=== PATIENT | male | born 1990 | race Caucasian/White ===

== ENCOUNTER 2023-03-02 04:59 | Emergency (ER) | payer OTHER ==
[~2023-03-02] VITALS: Ht 180.3 cm; Wt 74.8 kg
--- NOTE | 2023-03-02 05:29 | NUR ---
EMT AT BEDSIDE FOR EKG
--- NOTE | 2023-03-02 05:36 | NUR ---
RAC 20G ESTABLISHED. CONVERTED TO SALINE LOCK
--- NOTE | 2023-03-02 05:37 | NUR ---
RAD AT BED SIDE
[2023-03-02 05:48] LABS: HEMATOCRIT 44 % (39-51); HEMOGLOBIN 14.9 g/dL (13.5-17.5); MEAN CORPUSCULAR VOLUME 90 fL (80-96); RED BLOOD CELL COUNT(AUTO) 4.88 MIL/uL (4.5-6.0)
[2023-03-02 05:49] LABS: BASOPHILS % (AUTO) 0.6 % (0.0-2.0); EOSINOPHILS % (AUTO) 3.5 % (0.0-6.0); LYMPHOCYTES # (AUTO) 2.6 K/uL (0.8-4.8); LYMPHOCYTES % (AUTO) 36.7 % (20.0-44.0); MEAN CORPUSCULAR HGB CONC 34 g/dl (31.0-36.0); MONOCYTES # (AUTO) 0.6 K/uL (0.1-1.30); MONOCYTES % (AUTO) 7.8 % (2.0-12.0); NEUTROPHILS # (AUTO) 3.6 K/uL (1.8-8.9); NEUTROPHILS % (AUTO) 51.4 % (43.0-81.0); PLATELET COUNT (AUTO) 174 K/uL (150-450)
[2023-03-02 06:12] LABS: CALCIUM, SERUM 8.9 mg/dL (8.5-10.1); CARBON DIOXIDE 27 mmol/L (21-32); CHLORIDE 105 mmol/L (98-107); CREATININE 1.1 mg/dL (0.6-1.3); GLUCOSE 95 mg/dL (74-106); POTASSIUM 3.3 mmol/L (3.5-5.1); SODIUM SERUM 142 mmol/L (136-145); UREA NITROGEN, BLOOD 19 mg/dL (7-18)
--- NOTE | 2023-03-02 06:18 | NUR ---
DR HANCOCK AT BEDSIDE
--- NOTE | 2023-03-02 06:53 | NUR ---
Patient discharged to home in stable condition. Written and verbal after care instructions given. Patient verbalizes understanding of instruction.
--- NOTE | 2023-03-02 06:53 | NUR ---
IV removed. Catheter intact and site benign. Pressure and 4x4 applied to site. No bleeding noted.
[2023-03-02 06:55] VITALS: BP 112/65; TEMP 98.5; O2SAT 98
== END 2023-03-02 06:55 | disposition home or self-care (01) ==
LOC: ER 05:03
DX: R07.89 Other chest pain (principal)
CPT/HCPCS: 36415; 71045-TC; 80048-TC; 84484-TC; 85025-TC

== ENCOUNTER 2024-09-23 02:12 | Emergency (ER) | payer OTHER ==
[~2024-09-23] VITALS: Ht 180.3 cm; Wt 74.8 kg
[2024-09-23] MEDS: DICYCLOMINE HCL INJ 20 MG/2 ML AMPUL IM ONE (03:00)
[2024-09-23] MEDS: LIDOCAINE VISCOUS 2% UD 15 ML UDC MM ONE (03:00)
[2024-09-23] MEDS ORDERED: MAG HYDROX/AL HYDROX/SIMETH 30 ML UDC ONE (03:10)
[2024-09-23] MEDS ORDERED: DICYCLOMINE HCL INJ 20 MG/2 ML AMPUL IM ONE (03:10)
[2024-09-23] MEDS ORDERED: LIDOCAINE VISCOUS 2% UD 15 ML UDC ONE (03:10)
[2024-09-23] MEDS: MAG HYDROX/AL HYDROX/SIMETH 30 ML UDC PO ONE (03:17)
[2024-09-23] MEDS: SIMETHICONE 80 MG TAB.CHEW ONE (03:20)
[2024-09-23] MEDS: SIMETHICONE 80 MG TAB.CHEW PO ONE (03:20)
[2024-09-23 03:22] LABS: BASOPHILS % (AUTO) 0.3 % (0.0-2.0); EOSINOPHILS # (AUTO) 0.1 K/uL (0.0-0.7); EOSINOPHILS % (AUTO) 0.9 % (0.0-6.0); HEMATOCRIT 44 % (39-51); LYMPHOCYTES % (AUTO) 10.3 % (20.0-44.0); MEAN CORPUSCULAR HEMOGLOBIN 31 PG (26.0-33.0); MEAN CORPUSCULAR HGB CONC 34 g/dl (31.0-36.0); MEAN CORPUSCULAR VOLUME 91 fL (80-96); MONOCYTES # (AUTO) 0.3 K/uL (0.1-1.30); MONOCYTES % (AUTO) 3.2 % (2.0-12.0); NEUTROPHILS # (AUTO) 8.3 K/uL (1.8-8.9); NEUTROPHILS % (AUTO) 85.3 % (43.0-81.0); PLATELET COUNT (AUTO) 141 K/uL (150-450); RED BLOOD CELL COUNT(AUTO) 4.89 MIL/uL (4.5-6.0); RED CELL DISTRIBUTION WIDTH 12.8 % (11.5-15.0); WHITE BLOOD COUNT (AUTO) 9.8 K/uL (4.3-11.0)
[2024-09-23 03:26] LABS: CALCIUM, SERUM 8.5 mg/dL (8.5-10.1); CARBON DIOXIDE 28 mmol/L (21-32); CHLORIDE 106 mmol/L (98-107); GLUCOSE 111 mg/dL (74-106); POTASSIUM 4.9 mmol/L (3.5-5.1); SODIUM SERUM 139 mmol/L (136-145); UREA NITROGEN, BLOOD 20 mg/dL (7-18)
[2024-09-23 03:32] LABS: ALANINE AMINOTRANSFERASE 58 U/L (12-78); ALBUMIN 3.7 g/dL (3.4-5.0); ALKALINE PHOSPHATASE 50 U/L (46-116); ASPARTATE AMINOTRANSFERASE 49 U/L (15-37); BILIRUBIN,DIRECT 0.3 mg/dL (0.0-0.2); BILIRUBIN,TOTAL 1.3 mg/dL (0.2-1.0)
[2024-09-23] MEDS ORDERED: SIME80TA15 PO (03:38)
[2024-09-23] MEDS ORDERED: PANT40TA2 PO (03:38)
[2024-09-23 04:24] VITALS: BP 105/65; TEMP 98; O2SAT 97
== END 2024-09-23 04:25 | disposition home or self-care (01) ==
LOC: ER 02:19
DX: K21.9 Gastro-esophageal reflux disease without esophagitis (principal); R07.89 Other chest pain; R14.1 Gas pain; Z79.899 Other long term (current) drug therapy
CPT/HCPCS: 99285; 71045; 96372; 93005; 85025; 80048; 80076; 85378; 36415; 84484; J0500